=== PATIENT | female | born 1975 | race Caucasian/White ===

== ENCOUNTER 2019-01-20 10:58 | Emergency (ER) | payer MEDICAID ==
[2019-01-20 11:16] VITALS: BP 120/66
[2019-01-20] MEDS ORDERED: KETOROLAC TROMETHAMINE 60 MG/2 ML SDV IM ONE (11:46)
--- NOTE | 2019-01-20 11:51 | ER Document Report ---
Addendum entered and electronically signed by DONALD MILLER FNP-C 01/20/19 12:15: Discharge - Discharge Clinical Impression: Dental caries Condition: Stable Disposition: HOME, SELF-CARE Instructions: Dentist, Dental Infection or Abscess ([facility]), Toradol Injection ([facility]) Additional Instructions: You have been seen for dental pain. It is very important that you follow-up with a dentist for definitive care. Please return if you develop fever greater than 101, swelling in your face, vomiting, difficulty breathing or swallowing, or any other symptoms that are concerning to you. For pain you should take ibuprofen 600 mg every 6 hours as needed. Prescriptions: Ibuprofen [Ibu] 800 mg PO Q6HP PRN #20 tablet PRN Reason: Clindamycin HCl 300 mg PO Q6H #28 capsule Forms: Return to Work Referrals: CROW BARKLEY MD [Primary Care Provider] - Follow up as needed MARIELLE MARIN MD [COMMUNITY BASED STAFF] - Follow up as needed Original Note: HPI - HPI Time Seen by Provider: 01/20/19 11:32 Pain Level: 3 Notes: 43-year-old female presents to the ED for left upper and lower dental pain for the last 2 weeks, has been seen by her dentist, had a filling replaced, she does need tooth extraction of the left upper tooth, has an appointment with oral surgeon February 23. Patient was not placed on antibiotic by her dentist patient is concerned about infection, states pain is 6 out of 10, throbbing achy, denies any trismus, neck pain. Has taken [id number] ibuprofen with some relief. Denies fevers, chills, chest pain,palpitations, shortness of breath, dyspnea, nausea, vomiting, diarrhea, abdominal pain, blurred vision, double vision, loss of vision, speech changes, LH, dizziness, syncope, headaches, wheezing, ST, URI, neck pain, weakness, bowel or bladder dysfunction, - CONSTITUTIONAL Constitutional: REPORTS: Chills. DENIES: Fever - EENT EENT: DENIES: Sore Throat, Ear Pain, Eye problems - NEURO Neurology: DENIES: Headache, Weakness, Vision blurred, Dizzinesss / Vertigo - CARDIOVASCULAR Cardiovascular: DENIES: Chest pain - RESPIRATORY Respiratory: DENIES: Trouble Breathing, Coughing - GASTROINTESTINAL Gastrointestinal: DENIES: Abdominal Pain, Black / Bloody Stools - URINARY Urinary: DENIES: Dysuria, Urgency, Frequency - REPRODUCTIVE Reproductive: DENIES: : - MUSCULOSKELETAL Musculoskeletal: DENIES: Extremity pain Past Medical History - General Information source: Patient - Social History Smoking Status: Current Every Day Smoker Chew tobacco use (# tins/day): No Frequency of alcohol use: None Drug Abuse: None Family History: Reviewed & Not Pertinent Patient has suicidal ideation: No Patient has homicidal ideation: No Renal/ Medical History: Denies: Hx Peritoneal Dialysis GI Medical History: Reports: Hx Gastroesophageal Reflux Disease, Hx Ulcer Psychiatric Medical History: Reports: Hx Depression Past Surgical History: Reports: Hx Section - 2, Hx Tubal Ligation Vertical Provider Document - CONSTITUTIONAL Agree With Documented VS: Yes Exam Limitations: No Limitations Notes: PHYSICAL EXAMINATION: GENERAL: Well-appearing, well-nourished and in no acute distress. HEAD: Atraumatic, normocephalic. EYES: Pupils equal round and reactive to light, extraocular movements intact, conjunctiva are normal. ENT: Nares patent, oropharynx clear without exudates. Moist mucous membranes. #14 and #19 gingiva with swelling, erythema and induration. No drainage or open wounds. No fluctuance. No facial swelling. Poor oral dentition, right lower jaw with mild dental caries, no definite swelling or effusion. NECK: Normal range of motion, supple without lymphadenopathy LUNGS: Breath sounds clear to auscultation bilaterally and equal. No wheezes rales or rhonchi. HEART: Regular rate and rhythm without murmurs ABDOMEN: Soft, nontender, nondistended abdomen. No guarding, no rebound. No masses appreciated. Female : deferred Musculoskeletal: Normal range of motion, no pitting or edema. No cyanosis. NEUROLOGICAL: Cranial nerves grossly intact. Normal speech, normal gait. Normal sensory, motor exams PSYCH: Normal mood, normal affect. SKIN: Warm, Dry, normal turgor, no rashes or lesions noted. - INFECTION CONTROL TRAVEL OUTSIDE OF THE [place] IN LAST 30 DAYS: No Course - Re-evaluation Re-evalutation: 01/20/19 11:51 Vital signs stable, nursing notes reviewed. Noted dental caries to #14 #19 on clinical examination, will start patient on clindamycin, patient given Toradol injection 60 mg IM, advised to apply heat 20 minutes on 20 minutes off to to face, advised to follow-up with dentist, list of dentist given. Take [id number] ibuprofen and Tylenol as needed. After performing a Medical Screening Examination, I estimate there is LOW risk for a DEEP SPACE INFECTION (e.g., AMBROSE'S ANGINA OR RETROPHARYNGEAL ABSCESS), MENINGITIS, INTRACRANIAL HEMORRHAGE, or AIRWAY COMPROMISE, thus I consider the discharge disposition reasonable. Also, there is no evidence or peritonitis, sepsis, or toxicity. I have reevaluated this patient multiple times and no significant life threatening changes are noted. The patient and I have discussed the diagnosis and risks, and we agree with discharging home with close follow-up with the understanding that symptoms and presentations can change. We also discussed returning to the Emergency Department immediately if new or worsening symptoms occur. We have discussed the symptoms which are most concerning (e.g., changing or worsening p ain, trouble swallowing or breathing, neck stiffness or fever) that necessitate immediate return. - Vital Signs Vital signs: Temp Pulse Resp BP Pulse Ox 98.5 F 67 16 120/66 100 01/20/19 11:13 01/20/19 11:13 01/20/19 11:13 01/20/19 11:13 01/20/19 11:13 Discharge - Discharge Clinical Impression: Dental caries Condition: Stable Disposition: HOME, SELF-CARE Instructions: Dentist, Dental Infection or Abscess ([facility]), Toradol Injection ([facility]) Additional Instructions: You have been seen for dental pain. It is very important that you follow-up with a dentist for definitive care. Please return if you develop fever greater than 101, swelling in your face, vomiting, difficulty breathing or swallowing, or any other symptoms that are concerning to you. For pain you should take ibuprofen 600 mg every 6 hours as needed. Prescriptions: Ibuprofen [Ibu] 800 mg PO Q6HP PRN #20 tablet PRN Reason: Forms: Return to Work Referrals: CROW BARKLEY MD [Primary Care Provider] - Follow up as needed MARIELLE MARIN MD [COMMUNITY BASED STAFF] - Follow up as needed
== END 2019-01-20 12:15 | disposition home or self-care (01) ==
LOC: ER 10:58
DX: K02.9 Dental caries, unspecified (principal); K08.89 Other specified disorders of teeth and supporting structures; Z98.890 Other specified postprocedural states; R68.83 Chills (without fever); F17.200 Nicotine dependence, unspecified, uncomplicated
CPT/HCPCS: 99282; 96374; J1885

== ENCOUNTER 2019-09-23 11:48 | Emergency (ER) | payer SELFPAY ==
[2019-09-23 11:54] VITALS: BP 129/72
--- NOTE | 2019-09-23 12:15 | ER Document Report ---
ED General - General Chief Complaint: Toothache Stated Complaint: TOOTH PAIN Notes: Patient is a 44-year-old white female with a past medical history of poor dentition who presents to the emergency department with a chief complaint of dental pain that began yesterday. She states she has had infection in the same area before. Has been trying to see the dentist but reports everything is been close down due to the current pandemic. She states yesterday she began feeling pain in the same left upper posterior molar. She reports the area to be tender with any chewing or touching. States she has been using mouthwash without any significant improvement. Admits to some mild drainage earlier today that was sour taste. Denies any fever, nausea vomiting, diarrhea, chills, night sweats, difficulty breathing or trouble with secretions. TRAVEL OUTSIDE OF THE [place] IN LAST 30 DAYS: No - Related Data Allergies/Adverse Reactions: acetaminophen [From Vicodin] Allergy (Verified 01/20/19 11:00) Nausea hydrocodone bitartrate [From Vicodin] Allergy (Verified 01/20/19 11:00) Nausea Past Medical History - Social History Smoking Status: Current Every Day Smoker Family History: Reviewed & Not Pertinent Patient has suicidal ideation: No Patient has homicidal ideation: No Renal/ Medical History: Denies: Hx Peritoneal Dialysis GI Medical History: Reports: Hx Gastroesophageal Reflux Disease, Hx Ulcer Psychiatric Medical History: Reports: Hx Depression Past Surgical History: Reports: Hx Section - 2, Hx Tubal Ligation Review of Systems - Review of Systems EENT: Mouth pain, Dental problem -: Yes All other systems reviewed and negative Physical Exam - Vital signs Vitals: Temp Pulse Resp BP Pulse Ox 98.1 F 95 14 129/72 H 95 09/23/19 11:52 09/23/19 11:52 09/23/19 11:52 09/23/19 11:52 09/23/19 11:52 - General General appearance: Appears well, Alert - HEENT Head: Normocephalic, Atraumatic Eyes: Normal Conjunctiva: Normal Extraocular movements intact: Yes Eyelashes: Normal Pupils: PERRL Ears: Normal External canal: Normal Tympanic membrane: Normal Sinus: Normal Nasal: Normal Mouth/Lips: Other - Broken inferior enamel to the left upper posterior molar. Obvious cavities. Area is very tender to percussion and palpation. Minimal surrounding gingival erythema. No gingival abscess or drainage. No purulence appreciated. No trismus. Patent airway, handling secretions well. No sublingual or submental swelling. Teeth diagram: 1 - Affected tooth Pharynx: Normal Neck: Normal - Respiratory Respiratory status: No respiratory distress Chest status: Nontender Breath sounds: Normal Chest palpation: Normal - Cardiovascular Rhythm: Regular Heart sounds: Normal auscultation - Neurological Neuro grossly intact: Yes Cognition: Normal Orientation: AAOx4 [place] Coma Scale Eye Opening: Spontaneous [place] Coma Scale Verbal: Oriented [place] Coma Scale Motor: Obeys Commands [place] Coma Scale Total: 15 Speech: Normal - Psychological Associated symptoms: Normal affect, Normal mood - Skin Skin Temperature: Warm Skin Moisture: Dry Skin Color: Normal Course - Re-evaluation Re-evalutation: 09/23/19 12:14 Patient given a prescription for Pen-Vee K, Peridex and lidocaine oral pharyngeal solution. Counseled her regarding the importance of outpatient f ollow-up with a dentist. Advise she return here or any ER immediately with any new, persistent or worsening symptoms. She verbalized understood and agreed. - Vital Signs Vital signs: Temp Pulse Resp BP Pulse Ox 98.1 F 95 14 129/72 H 95 09/23/19 11:52 09/23/19 11:52 09/23/19 11:52 09/23/19 11:52 09/23/19 11:52 Discharge - Discharge Clinical Impression: Dental abscess Condition: Stable Disposition: HOME, SELF-CARE Instructions: Toothache ([facility]) Additional Instructions: Please follow-up with your dentist as soon as possible. Return here or any ER immediately with any new, persistent or worsening symptoms. Prescriptions: Penicillin V Potassium [Penicillin Vk 500 mg Tablet] 500 mg PO QID #40 tablet Chlorhexidine Gluconate [Peridex] 15 ml MM QID #40 mouthwash Lidocaine HCl [Xylocaine 2% Viscous Soln 15 ml Udcup] 15 ml MM QID PRN #20 udc PRN Reason:
== END 2019-09-23 12:18 | disposition home or self-care (01) ==
LOC: ER 11:48
DX: K04.7 Periapical abscess without sinus (principal); K08.89 Other specified disorders of teeth and supporting structures; K02.9 Dental caries, unspecified; S02.5XXA Fracture of tooth (traumatic), initial encounter for closed fracture; X58.XXXA Exposure to other specified factors, initial encounter; Z88.8 Allergy status to other drugs, medicaments and biological substances; F17.200 Nicotine dependence, unspecified, uncomplicated
CPT/HCPCS: 99282